=== PATIENT | male | born 1950 | race American Indian/Alaskan Native ===

== ENCOUNTER 2017-07-15 13:56 | Outpatient (CLI) | payer MEDICARE ==
--- NOTE | 2017-07-15 16:02 | XRay Report ---
Left knee: Pain. The medial joint compartment is almost collapsed and there are large periarticular spurs. The lateral compartment may be slightly narrowed with mild periarticular spurring. The articular margins however appear generally smooth. There is a mild genu valgus deformity of the need alignment. The bones are relatively well-mineralized. There is no swelling and no effusion identified. Mural calcification is identified in the distal femoral and popliteal arteries. Impressions: Degenerative joint changes worse on medial side. SI joints: Pain. AP and both obliques included. Both SI joints are preserved with equal spacing. The margins are smooth. The bones are well-mineralized. Of note are degenerative spurs involving the L4 and L5 bodies with L4-5 interspace narrowing. Total left knee replacement. Impression: Normal SI joints.
== END 2017-07-15 13:57 | disposition home or self-care (01) ==
LOC: SPVIMAG 13:56
PROVIDERS: ATTEND Physical Medicine & Rehabilitation
DX: M17.12 Unilateral primary osteoarthritis, left knee (principal); M21.062 Valgus deformity, not elsewhere classified, left knee; M47.896 Other spondylosis, lumbar region; Z96.652 Presence of left artificial knee joint; M25.552 Pain in left hip
CPT/HCPCS: 72202

== ENCOUNTER 2018-07-28 09:55 | Outpatient (CLI) | payer MEDICARE ==
--- NOTE | 2018-07-28 11:44 | XRay Report ---
XRAY LEFT HIP THREE VIEWS: 07/28/18 09:55:00 CLINICAL: Left hip pain. Status post hip replacement in 2016. FINDINGS: Status post left total hip replacement with normal appearance of the prosthesis. No apparent loosening. No fracture or dislocation. Minimal arthritis of the right hip. The SI joints are normal. The pelvic bones are intact. Normal soft tissues. IMPRESSION: Negative study status post left total hip replacement.
== END 2018-07-28 09:56 | disposition home or self-care (01) ==
LOC: SPVIMAG 09:55
PROVIDERS: ATTEND Physical Medicine & Rehabilitation
DX: M25.552 Pain in left hip (principal); Z96.642 Presence of left artificial hip joint

== ENCOUNTER 2018-12-30 09:44 | Outpatient (CLI) | payer MEDICARE ==
--- NOTE | 2018-12-30 11:35 | XRay Report ---
XRAY RIGHT KNEE XRAY RIGHT KNEE 3 THREE VIEWS: 12/30/18 09:44:00 CLINICAL: Right knee pain. FINDINGS: Moderate diffuse osteopenia. Status post total joint replacement with normal appearance of the prosthesis. No apparent loosening of the prosthesis. No fracture or dislocation. No joint effusion. Extensive arterial calcifications. The soft tissues are otherwise normal. IMPRESSION: Negative study status post total joint replacement.
== END 2018-12-30 09:45 | disposition home or self-care (01) ==
LOC: SPVIMAG 09:44
PROVIDERS: ATTEND Physical Medicine & Rehabilitation
DX: M85.861 Other specified disorders of bone density and structure, right lower leg (principal)

== ENCOUNTER 2019-02-02 09:25 | Outpatient (CLI) | payer MEDICARE ==
--- NOTE | 2019-02-02 10:14 | XRay Report ---
XRAY RIGHT SHOULDER THREE VIEWS: 02/02/19 09:25:00 CLINICAL: Right shoulder pain. FINDINGS: Normal glenohumeral alignment. Moderate glenohumeral joint osteoarthritis with a large inferior humeral osteophyte and a smaller inferior glenoid osteophyte. Moderate acromioclavicular joint osteoarthritis. A soft tissue calcification at the rotator cuff insertion. No fracture or dislocation. No bone lesion. IMPRESSION: Glenohumeral joint osteoarthritis and acromioclavicular joint osteoarthritis. Calcific bursitis or tendinitis at the rotator cuff insertion.
== END 2019-02-02 09:26 | disposition home or self-care (01) ==
LOC: SPVIMAG 09:25
PROVIDERS: ATTEND Physical Medicine & Rehabilitation
DX: M19.011 Primary osteoarthritis, right shoulder (principal)